=== PATIENT | female | born 1980 | race Caucasian/White ===

== ENCOUNTER 2019-01-12 18:00 | Emergency (ER) | payer OTHER ==
[~2019-01-12] VITALS: Ht 162.6 cm; Wt 61.8 kg
[2019-01-12] MEDS ORDERED: HYDROCODONE/ACETAMINOPHEN 5-325 MG TABLET PO ONE (21:00)
[2019-01-12 22:18] VITALS: BP 120/76
== END 2019-01-12 22:52 | disposition home or self-care (01) ==
LOC: EMS 18:01
DX: S42.302A Unspecified fracture of shaft of humerus, left arm, initial encounter for closed fracture (principal); V19.88XA Pedal cyclist (driver) (passenger) injured in other specified transport accidents, initial encounter; Y93.55 Activity, bike riding; Y92.89 Other specified places as the place of occurrence of the external cause; Y99.8 Other external cause status
CPT/HCPCS: 29105

== ENCOUNTER 2019-08-16 20:49 | Emergency (ER) | payer OTHER ==
[~2019-08-16] VITALS: Ht 162.6 cm; Wt 60.9 kg
[2019-08-16] MEDS ORDERED: FLUO10CA23 PO (21:17)
[2019-08-16 23:17] LABS: APPEARANCE,URINE CLOUDY (CLEAR); GLUCOSE, URINE (UA) NEGATIVE (NEGATIVE); KETONES,URINE 15 mg/dL (NEGATIVE); LEUKOCYTE ESTERASE ,URINE NEGATIVE (NEGATIVE); NITRATE,URINE NEGATIVE (NEGATIVE); OCCULT BLOOD,URINE NEGATIVE (NEGATIVE); PH,URINE 5.5 (5.0-8.0); PROTEIN,URINE TRACE (NEGATIVE)
[2019-08-16 23:25] LABS: BILIRUBIN,URINE PRELIM. POSITIVE (NEGATIVE)
[2019-08-16 23:29] LABS: BACTERIA,URINE Few /HPF (None Seen); RBC,URINE 0-2 /HPF (0-2); SQUAMOUS EPITHELIAL CELL,UR Moderate /LPF (None Seen); WBC,URINE 0-2 /HPF (0-5)
[2019-08-16 23:49] LABS: BASOPHILS % (AUTO) 0.5 % (0.0-2.0); EOSINOPHILS % (AUTO) 1.4 % (1.0-6.0); HEMOGLOBIN 14.4 g/dL (12.0-16.0); LYMPHOCYTES # (AUTO) 0.9 K/uL (1.0-4.8); LYMPHOCYTES % (AUTO) 15.2 % (22.0-44.0); MEAN CORPUSCULAR HEMOGLOBIN 31.5 pg (26.0-34.0); MEAN CORPUSCULAR HGB CONC 34.4 G/dL (31.0-37.0); MEAN CORPUSCULAR VOLUME 92 fL (80-100); MONOCYTES # (AUTO) 0.6 K/uL (0.1-1.0); MONOCYTES % (AUTO) 9.5 % (2.0-9.0); NEUTROPHILS # (AUTO) 4.3 K/uL (1.8-7.7); NEUTROPHILS % (AUTO) 73.4 % (40.0-70.0); PLATELET COUNT (AUTO) 201 K/uL (150-450); RED BLOOD CELL COUNT(AUTO) 4.59 MIL/uL (4.00-5.20); RED CELL DISTRIBUTION WIDTH 14.3 % (11.5-14.5)
[2019-08-17] MEDS ORDERED: SODIUM CHLORIDE 0.9% 1,000 ML IV ONE
[2019-08-17] MEDS ORDERED: ONDANSETRON HCL 4 MG/2 ML VIAL IVP ONE
[2019-08-17] MEDS ORDERED: KETOROLAC TROMETHAMINE 30 MG/ML VIAL IVP ONE
[2019-08-17 00:01] LABS: ANION GAP 12 mmol/L (8-16); CALCIUM, TOTAL 9.5 mg/dL (8.8-10.5); CARBON DIOXIDE 27 mmol/L (22-29); CHLORIDE 102 mmol/L (98-107); CREATININE 0.82 mg/dL (0.60-1.30); GLOMERULAR FILTR. RATE CALC > 60 mL/min (>60); GLUCOSE,RANDOM 92 mg/dL (70-110); POTASSIUM 3.6 mmol/L (3.5-5.1); SODIUM SERUM 141 mmol/L (136-145); UREA NITROGEN, BLOOD 26 mg/dL (7-18)
[2019-08-17 00:16] LABS: AMPHET/METH SCREEN,URINE POSITIVE (NEGATIVE); BARBITURATE SCREEN, URINE NEGATIVE (NEGATIVE); BENZODIAZEPINES SCREEN,URINE NEGATIVE (NEGATIVE); CANNABINOID SCREEN,URINE NEGATIVE (NEGATIVE); COCAINE SCREEN,URINE NEGATIVE (NEGATIVE); METHADONE SCREEN, URINE NEGATIVE (NEGATIVE); OPIATE SCREEN,URINE NEGATIVE (NEGATIVE)
[2019-08-17 00:20] LABS: PHENCYCLIDINE SCREEN,URINE NEGATIVE (NEGATIVE)
[2019-08-17 00:21] LABS: ALANINE AMINOTRANSFERASE 99 U/L (12-78); ALBUMIN 4.3 g/dL (3.4-5.0); ALKALINE PHOSPHATASE 63 U/L (46-116); ASPARTATE AMINOTRANSFERASE 61 U/L (15-37); BILIRUBIN,TOTAL 1.1 mg/dL (0.1-1.0); HCG,QUANTITATIVE < 1 mIU/mL (0-6); LIPASE 135 U/L (73-393)
[2019-08-17 01:21] VITALS: BP 120/73
== END 2019-08-17 01:58 | disposition home or self-care (01) ==
LOC: EMS 20:50
DX: R10.31 Right lower quadrant pain (principal); R10.32 Left lower quadrant pain; R11.0 Nausea; F15.10 Other stimulant abuse, uncomplicated; F12.90 Cannabis use, unspecified, uncomplicated; F17.210 Nicotine dependence, cigarettes, uncomplicated
CPT/HCPCS: 36415; 80053; 80307; 81001; 83690; 84702; 85025; 96374; 96375; 99283; J1885; J2405; J7030

== ENCOUNTER 2021-02-07 00:09 | Inpatient (IN) | payer MEDICAID, OTHER ==
[~2021-02-07] VITALS: Ht 162.6 cm; Wt 63.6 kg
[~2021-02-07 00:09] MED LIST: FLUO10CA23 PO
[2021-02-07] MEDS ORDERED: DiphenhydrAMINE HCL 50 MG/ML VIAL IM ONE (00:45)
[2021-02-07] MEDS ORDERED: LORazepam 2 MG/ML VIAL IM ONE (00:45)
[2021-02-07] MEDS ORDERED: HALOPERIDOL LACTATE 5 MG/ML VIAL IM ONE (00:45)
[2021-02-07] MEDS ORDERED: ZOLPIDEM TARTRATE 10 MG TABLET PO PRN (01:30)
[2021-02-07 01:39] LABS: COVID AG,FIA SOURCE NASOPHARYNGEAL
[2021-02-07 01:44] LABS: BASOPHILS % (AUTO) 0.6 % (0.0-2.0); EOSINOPHILS % (AUTO) 3.3 % (1.0-6.0); HEMOGLOBIN 13.1 g/dL (12.0-16.0); LYMPHOCYTES # (AUTO) 1.3 K/uL (1.0-4.8); LYMPHOCYTES % (AUTO) 28.2 % (22.0-44.0); MEAN CORPUSCULAR HGB CONC 33.6 G/dL (31.0-37.0); MEAN CORPUSCULAR VOLUME 92 fL (80-100); MONOCYTES # (AUTO) 0.6 K/uL (0.1-1.0); MONOCYTES % (AUTO) 12.5 % (2.0-9.0); NEUTROPHILS # (AUTO) 2.5 K/uL (1.8-7.7); NEUTROPHILS % (AUTO) 55.4 % (40.0-70.0); PLATELET COUNT (AUTO) 173 K/uL (150-450); RED BLOOD CELL COUNT(AUTO) 4.23 MIL/uL (4.00-5.20); RED CELL DISTRIBUTION WIDTH 13.5 % (11.5-14.5)
[2021-02-07 01:55] LABS: ANION GAP 7 mmol/L (8-16); CALCIUM, TOTAL 9.2 mg/dL (8.8-10.5); CARBON DIOXIDE 29 mmol/L (22-29); CHLORIDE 106 mmol/L (98-107); CREATININE 0.82 mg/dL (0.60-1.30); GLOMERULAR FILTR. RATE CALC > 60 mL/min (>60); GLUCOSE,RANDOM 109 mg/dL (70-110); SODIUM SERUM 142 mmol/L (136-145); UREA NITROGEN, BLOOD 18 mg/dL (7-18)
[2021-02-07 02:09] LABS: ALANINE AMINOTRANSFERASE 44 U/L (12-78); ALBUMIN 3.7 g/dL (3.4-5.0); ALKALINE PHOSPHATASE 57 U/L (46-116); ASPARTATE AMINOTRANSFERASE 25 U/L (15-37); BILIRUBIN,TOTAL 0.3 mg/dL (0.1-1.0); HCG,QUANTITATIVE < 1 mIU/mL (0-6); TOTAL PROTEIN, SERUM 7.2 g/dL (6.4-8.2)
[2021-02-07 03:36] VITALS: BP 110/60
[2021-02-07] MEDS ORDERED: INFLUENZA VIRUS VACCINE QVS 2020-21 (6MO+)/PF 60 MCG/0.5 ML SYRINGE IM ONE (04:00)
[2021-02-07 08:16] VITALS: BP 100/62
[2021-02-07] MEDS ORDERED: PROMETHAZINE HCL 25 MG TABLET PO PRN (10:15)
[2021-02-07] MEDS ORDERED: TUBERCULIN, PURIFIED PROTEIN DERIVATIVE 5 TU/0.1 ML SYRINGE ID ONE (10:15)
[2021-02-07] MEDS ORDERED: HydrOXYzine PAMOATE 50 MG CAPSULE PO PRN (10:15)
[2021-02-07] MEDS ORDERED: GuaiFENesin/D-METHORPHAN [SUGAR-FREE] 200-20MG/10 ML SYRUP UDCUP PO PRN (10:15)
[2021-02-07 16:18] VITALS: BP 100/67
[2021-02-07] MEDS: THIAMINE 100 MG TABLET PO SCH (16:22)
[2021-02-07] MEDS: LORazepam 2 MG TABLET PO PRN (16:32)
[2021-02-07] MEDS: MELATONIN 5 MG TABLET PO SCH (20:37)
[2021-02-07] MEDS ORDERED: OLANZapine 5 MG RAPDIS TABLET PO SCH (21:00)
[2021-02-08 00:41] VITALS: BP 102/72
[2021-02-08] MEDS: NALTREXONE HCL 50 MG TABLET PO SCH (08:16)
[2021-02-08] MEDS: THIAMINE 100 MG TABLET PO SCH ×2 (08:16→16:11)
[2021-02-08] MEDS: FOLIC ACID 1 MG TABLET PO SCH (08:16)
[2021-02-08] MEDS: MULTIVITAMINS WITH MINERALS, THERAPEUTIC TABLET PO SCH (08:16)
[2021-02-08] MEDS: OMEGA-3/DHA/EPA/FISH OIL 1,000 MG CAPSULE PO SCH (08:16)
[2021-02-08] MEDS: LORazepam 2 MG TABLET PO PRN ×2 (08:19→16:17)
[2021-02-08] MEDS ORDERED: MAG HYDROX/AL HYDROX/SIMETH ES 30 ML SUSPENSION UDCUP PO PRN (16:15)
[2021-02-08] MEDS ORDERED: PROMETHAZINE HCL 25 MG TABLET PO PRN (16:15)
[2021-02-08] MEDS ORDERED: MAGNESIUM HYDROXIDE SUSPENSION 30 ML UDCUP PO PRN (16:15)
[2021-02-08] MEDS ORDERED: LOPERAMIDE HCL 2 MG CAPSULE PO PRN (16:15)
[2021-02-08] MEDS ORDERED: TUBERCULIN, PURIFIED PROTEIN DERIVATIVE 5 TU/0.1 ML SYRINGE ID ONE (16:15)
[2021-02-08] MEDS: MELATONIN 5 MG TABLET PO SCH (19:54)
[2021-02-08] MEDS: OLANZapine 10 MG RAPDIS TABLET PO SCH (19:57)
[2021-02-09 00:25] VITALS: BP 110/77
[2021-02-09 08:05] VITALS: BP 134/70
[2021-02-09] MEDS: FOLIC ACID 1 MG TABLET PO SCH (08:18)
[2021-02-09] MEDS: MULTIVITAMINS WITH MINERALS, THERAPEUTIC TABLET PO SCH (08:18)
[2021-02-09] MEDS: THIAMINE 100 MG TABLET PO SCH ×2 (08:18→16:13)
[2021-02-09] MEDS: LORazepam 2 MG TABLET PO PRN (08:18)
[2021-02-09] MEDS: OMEGA-3/DHA/EPA/FISH OIL 1,000 MG CAPSULE PO SCH (08:18)
[2021-02-09] MEDS: NALTREXONE HCL 50 MG TABLET PO SCH (08:18)
[2021-02-09] MEDS: MELATONIN 5 MG TABLET PO SCH (20:08)
[2021-02-09] MEDS: OLANZapine 10 MG RAPDIS TABLET PO SCH (20:08)
[2021-02-09] MEDS: DIVALPROEX SODIUM 500 MG ER TABLET PO SCH (20:09)
[2021-02-09] MEDS: ACETAMINOPHEN 325 MG TABLET PO PRN (20:09)
[2021-02-10 06:20] VITALS: BP 112/62
[2021-02-10 07:29] LABS: HEMOGLOBIN A1C 5.5 % (3.8-5.6)
[2021-02-10 07:51] LABS: CHOL/HDL RATIO 2.9 (3.9-5.7); FREE T4 (FREE THYROXINE) 1.19 ng/dL (0.76-1.46); THYROID STIMULATING HORMONE 0.28 uIU/mL (0.36-3.74)
[2021-02-10 08:09] VITALS: BP 121/74
[2021-02-10] MEDS: NALTREXONE HCL 50 MG TABLET PO SCH (09:00)
[2021-02-10] MEDS: OMEGA-3/DHA/EPA/FISH OIL 1,000 MG CAPSULE PO SCH (09:00)
[2021-02-10] MEDS: THIAMINE 100 MG TABLET PO SCH ×2 (09:00→16:32)
[2021-02-10] MEDS: FOLIC ACID 1 MG TABLET PO SCH (09:00)
[2021-02-10] MEDS: MULTIVITAMINS WITH MINERALS, THERAPEUTIC TABLET PO SCH (09:00)
[2021-02-10 16:06] VITALS: BP 104/70
[2021-02-10] MEDS: DIVALPROEX SODIUM 500 MG ER TABLET PO SCH (20:56)
[2021-02-10] MEDS: MELATONIN 5 MG TABLET PO SCH (20:56)
[2021-02-10] MEDS: OLANZapine 10 MG RAPDIS TABLET PO SCH (20:56)
[2021-02-11 00:14] VITALS: BP 100/76
[2021-02-11 08:10] VITALS: BP 119/53
[2021-02-11] MEDS: MULTIVITAMINS WITH MINERALS, THERAPEUTIC TABLET PO SCH (08:12)
[2021-02-11] MEDS: OMEGA-3/DHA/EPA/FISH OIL 1,000 MG CAPSULE PO SCH (08:12)
[2021-02-11] MEDS: THIAMINE 100 MG TABLET PO SCH ×2 (08:12→17:00)
[2021-02-11] MEDS: FOLIC ACID 1 MG TABLET PO SCH (08:12)
[2021-02-11] MEDS: NALTREXONE HCL 50 MG TABLET PO SCH (08:12)
[2021-02-11] MEDS ORDERED: LORazepam 2 MG/ML VIAL ONE (11:26)
[2021-02-11] MEDS ORDERED: DiphenhydrAMINE HCL 50 MG/ML VIAL ONE (11:26)
[2021-02-11] MEDS ORDERED: HALOPERIDOL LACTATE 5 MG/ML VIAL ONE (11:26)
[2021-02-11] MEDS ORDERED: HALOPERIDOL LACTATE 5 MG/ML VIAL IM ONE (11:30)
[2021-02-11] MEDS ORDERED: DiphenhydrAMINE HCL 50 MG/ML VIAL IM ONE (11:30)
[2021-02-11] MEDS ORDERED: LORazepam 2 MG/ML VIAL IM ONE (11:30)
[2021-02-11 12:42] VITALS: BP 121/62
[2021-02-11 16:09] VITALS: BP 105/66
[2021-02-11] MEDS: MELATONIN 5 MG TABLET PO SCH (20:26)
[2021-02-11] MEDS: DIVALPROEX SODIUM 500 MG ER TABLET PO SCH (20:26)
[2021-02-11] MEDS: OLANZapine 10 MG RAPDIS TABLET PO SCH (20:27)
[2021-02-12 00:33] VITALS: BP 114/69
[2021-02-12] MEDS: MULTIVITAMINS WITH MINERALS, THERAPEUTIC TABLET PO SCH (08:56)
[2021-02-12] MEDS: FOLIC ACID 1 MG TABLET PO SCH (08:56)
[2021-02-12] MEDS: NALTREXONE HCL 50 MG TABLET PO SCH (08:56)
[2021-02-12] MEDS: THIAMINE 100 MG TABLET PO SCH ×2 (08:56→16:08)
[2021-02-12] MEDS: OMEGA-3/DHA/EPA/FISH OIL 1,000 MG CAPSULE PO SCH (08:56)
[2021-02-12] MEDS: ACETAMINOPHEN 325 MG TABLET PO PRN (16:09)
[2021-02-12] MEDS: DIVALPROEX SODIUM 500 MG ER TABLET PO SCH (20:07)
[2021-02-12] MEDS: OLANZapine 10 MG RAPDIS TABLET PO SCH (20:08)
[2021-02-12] MEDS: MELATONIN 5 MG TABLET PO SCH (20:08)
[2021-02-13 00:09] VITALS: BP 120/76
[2021-02-13 08:18] VITALS: BP 101/60
[2021-02-13] MEDS: MULTIVITAMINS WITH MINERALS, THERAPEUTIC TABLET PO SCH (08:46)
[2021-02-13] MEDS: THIAMINE 100 MG TABLET PO SCH ×2 (08:46→17:00)
[2021-02-13] MEDS: OMEGA-3/DHA/EPA/FISH OIL 1,000 MG CAPSULE PO SCH (08:46)
[2021-02-13] MEDS: FOLIC ACID 1 MG TABLET PO SCH (08:46)
[2021-02-13] MEDS: NALTREXONE HCL 50 MG TABLET PO SCH (08:46)
[2021-02-13 16:16] VITALS: BP 102/64
[2021-02-13] MEDS: DIVALPROEX SODIUM 500 MG ER TABLET PO SCH (21:00)
[2021-02-13] MEDS: OLANZapine 10 MG RAPDIS TABLET PO SCH (21:00)
[2021-02-13] MEDS: MELATONIN 5 MG TABLET PO SCH (21:00)
[2021-02-14 01:42] VITALS: BP 106/68
[2021-02-14 08:20] VITALS: BP 106/57
[2021-02-14] MEDS ORDERED: LORazepam 2 MG/ML VIAL ONE (08:21)
[2021-02-14] MEDS ORDERED: HALOPERIDOL LACTATE 5 MG/ML VIAL ONE (08:22)
[2021-02-14] MEDS ORDERED: DiphenhydrAMINE HCL 50 MG/ML VIAL ONE (08:22)
[2021-02-14] MEDS ORDERED: LORazepam 2 MG/ML VIAL IM ONE (08:30)
[2021-02-14] MEDS ORDERED: HALOPERIDOL LACTATE 5 MG/ML VIAL IM ONE (08:30)
[2021-02-14] MEDS ORDERED: DiphenhydrAMINE HCL 50 MG/ML VIAL IM ONE (08:30)
[2021-02-14] MEDS: THIAMINE 100 MG TABLET PO SCH ×2 (08:55→16:44)
[2021-02-14] MEDS: FOLIC ACID 1 MG TABLET PO SCH (08:55)
[2021-02-14] MEDS: MULTIVITAMINS WITH MINERALS, THERAPEUTIC TABLET PO SCH (08:56)
[2021-02-14] MEDS: OMEGA-3/DHA/EPA/FISH OIL 1,000 MG CAPSULE PO SCH (08:56)
[2021-02-14] MEDS: NALTREXONE HCL 50 MG TABLET PO SCH (08:56)
[2021-02-14 16:14] VITALS: BP 100/60
[2021-02-14] MEDS: LORazepam 2 MG TABLET PO PRN (18:54)
[2021-02-14] MEDS: DIVALPROEX SODIUM 500 MG ER TABLET PO SCH (20:07)
[2021-02-14] MEDS: MELATONIN 5 MG TABLET PO SCH (20:07)
[2021-02-14] MEDS: OLANZapine 10 MG RAPDIS TABLET PO SCH (20:08)
[2021-02-15 01:27] VITALS: BP 104/66
[2021-02-15 07:57] LABS: FREE T4 (FREE THYROXINE) 0.76 ng/dL (0.76-1.46); THYROID STIMULATING HORMONE 0.66 uIU/mL (0.36-3.74)
[2021-02-15 08:16] VITALS: BP 109/81
[2021-02-15] MEDS: OMEGA-3/DHA/EPA/FISH OIL 1,000 MG CAPSULE PO SCH (08:53)
[2021-02-15] MEDS: THIAMINE 100 MG TABLET PO SCH ×2 (08:53→16:09)
[2021-02-15] MEDS: FOLIC ACID 1 MG TABLET PO SCH (08:53)
[2021-02-15] MEDS: MULTIVITAMINS WITH MINERALS, THERAPEUTIC TABLET PO SCH (08:53)
[2021-02-15] MEDS: NALTREXONE HCL 50 MG TABLET PO SCH (08:53)
[2021-02-15] MEDS: LORazepam 2 MG TABLET PO PRN (13:35)
[2021-02-15 16:23] VITALS: BP 137/80
[2021-02-15] MEDS: DIVALPROEX SODIUM 500 MG ER TABLET PO SCH (20:14)
[2021-02-15] MEDS: MELATONIN 5 MG TABLET PO SCH (20:14)
[2021-02-15] MEDS: OLANZapine 10 MG RAPDIS TABLET PO SCH (20:15)
[2021-02-16 00:03] VITALS: BP 112/67
[2021-02-16 08:12] VITALS: BP 118/72
[2021-02-16] MEDS: THIAMINE 100 MG TABLET PO SCH ×2 (08:33→16:20)
[2021-02-16] MEDS: OMEGA-3/DHA/EPA/FISH OIL 1,000 MG CAPSULE PO SCH (08:33)
[2021-02-16] MEDS: FOLIC ACID 1 MG TABLET PO SCH (08:33)
[2021-02-16] MEDS: NALTREXONE HCL 50 MG TABLET PO SCH (08:33)
[2021-02-16] MEDS: MULTIVITAMINS WITH MINERALS, THERAPEUTIC TABLET PO SCH (08:34)
[2021-02-16] MEDS: LORazepam 2 MG TABLET PO PRN ×2 (08:38→16:20)
[2021-02-16] MEDS: OLANZapine 5 MG RAPDIS TABLET PO PRN (10:27)
[2021-02-16 16:00] VITALS: BP 114/70
[2021-02-16] MEDS: OLANZapine 10 MG RAPDIS TABLET PO SCH ×2 (21:00→21:25)
[2021-02-16] MEDS: MELATONIN 5 MG TABLET PO SCH ×2 (21:00→21:25)
[2021-02-16] MEDS: DIVALPROEX SODIUM 500 MG ER TABLET PO SCH ×2 (21:00→21:25)
[2021-02-17 00:14] VITALS: BP 110/69
[2021-02-17 08:19] VITALS: BP 121/84
[2021-02-17] MEDS: MULTIVITAMINS WITH MINERALS, THERAPEUTIC TABLET PO SCH (08:48)
[2021-02-17] MEDS: OMEGA-3/DHA/EPA/FISH OIL 1,000 MG CAPSULE PO SCH (08:48)
[2021-02-17] MEDS: FOLIC ACID 1 MG TABLET PO SCH (08:48)
[2021-02-17] MEDS: NALTREXONE HCL 50 MG TABLET PO SCH (08:48)
[2021-02-17] MEDS: THIAMINE 100 MG TABLET PO SCH (08:48)
[2021-02-17] MEDS: LORazepam 2 MG TABLET PO PRN ×2 (08:51→18:19)
[2021-02-17] MEDS: ACETAMINOPHEN 325 MG TABLET PO PRN (08:56)
[2021-02-17] MEDS: OLANZapine 5 MG RAPDIS TABLET PO PRN (09:25)
[2021-02-17] MEDS ORDERED: PALIPERIDONE PALMITATE 234 MG/1.5 ML SYRINGE IM ONE (14:45)
[2021-02-17] MEDS ORDERED: OLAN10TA22 PO (14:49)
[2021-02-17] MEDS ORDERED: OMEG-135 PO (14:49)
[2021-02-17] MEDS ORDERED: NALT50TA PO (14:49)
[2021-02-17] MEDS ORDERED: MELA5TAB3 PO (14:49)
[2021-02-17 16:18] VITALS: BP 118/84
[2021-02-17] MEDS: MELATONIN 5 MG TABLET PO SCH (20:44)
[2021-02-17] MEDS: OLANZapine 10 MG RAPDIS TABLET PO SCH (20:44)
[2021-02-18 01:44] VITALS: BP 110/74
[2021-02-18 08:07] VITALS: BP_SYST 104; BP_SYST 111; BP_DIAS 76; BP_DIAS 77
[2021-02-18] MEDS: MULTIVITAMINS WITH MINERALS, THERAPEUTIC TABLET PO SCH (08:43)
[2021-02-18] MEDS: OMEGA-3/DHA/EPA/FISH OIL 1,000 MG CAPSULE PO SCH (08:43)
[2021-02-18] MEDS: NALTREXONE HCL 50 MG TABLET PO SCH (08:43)
[2021-02-18] MEDS: LORazepam 2 MG TABLET PO PRN ×2 (08:44→16:44)
[2021-02-18] MEDS: OLANZapine 5 MG RAPDIS TABLET PO PRN (08:44)
[2021-02-18] MEDS ORDERED: PALIPERIDONE PALMITATE 234 MG/1.5 ML SYRINGE IM ONE (09:00)
[2021-02-18 16:04] VITALS: BP 102/67
[2021-02-18] MEDS: OLANZapine 10 MG RAPDIS TABLET PO SCH (20:39)
[2021-02-18] MEDS: MELATONIN 5 MG TABLET PO SCH (20:39)
[2021-02-19 02:14] VITALS: BP 110/64
[2021-02-19 07:55] LABS: COVID AG,FIA SOURCE NASAL SWAB
[2021-02-19 08:07] VITALS: BP 101/63
[2021-02-19] MEDS: MULTIVITAMINS WITH MINERALS, THERAPEUTIC TABLET PO SCH (08:20)
[2021-02-19] MEDS: NALTREXONE HCL 50 MG TABLET PO SCH (08:20)
[2021-02-19] MEDS: OMEGA-3/DHA/EPA/FISH OIL 1,000 MG CAPSULE PO SCH (08:20)
[2021-02-19 17:08] VITALS: BP 117/70
[2021-02-19] MEDS: LORazepam 2 MG TABLET PO PRN (17:45)
[2021-02-19] MEDS: ACETAMINOPHEN 325 MG TABLET PO PRN (17:46)
[2021-02-19] MEDS: OLANZapine 10 MG RAPDIS TABLET PO SCH (20:29)
[2021-02-19] MEDS: MELATONIN 5 MG TABLET PO SCH (20:29)
[2021-02-20 01:00] VITALS: BP 112/68
[2021-02-20] MEDS: LORazepam 2 MG TABLET PO PRN (08:02)
[2021-02-20] MEDS: MULTIVITAMINS WITH MINERALS, THERAPEUTIC TABLET PO SCH (08:02)
[2021-02-20] MEDS: NALTREXONE HCL 50 MG TABLET PO SCH (08:02)
[2021-02-20] MEDS: OMEGA-3/DHA/EPA/FISH OIL 1,000 MG CAPSULE PO SCH (08:02)
[2021-02-21] MEDS ORDERED: PALIPERIDONE PALMITATE 156 MG/ML SYRINGE IM ONE (09:00)
[2021-02-22] MEDS ORDERED: PALIPERIDONE PALMITATE 156 MG/ML SYRINGE IM ONE (09:00)
== END 2021-02-20 13:30 | disposition home or self-care (01) | DRG 750 ==
LOC: EMS 00:11 → B3A 02:00
PROVIDERS: ADMIT Psychiatry & Neurology Psychiatry; ATTEND Psychiatry & Neurology Psychiatry
DX: F25.1 Schizoaffective disorder, depressive type (principal); F12.90 Cannabis use, unspecified, uncomplicated; F15.90 Other stimulant use, unspecified, uncomplicated; F17.210 Nicotine dependence, cigarettes, uncomplicated; Z20.822 Contact with and (suspected) exposure to COVID-19; Z55.9 Problems related to education and literacy, unspecified; Z59.9 Problem related to housing and economic circumstances, unspecified; Z65.3 Problems related to other legal circumstances; Z91.14 Patient's other noncompliance with medication regimen; Z28.21 Immunization not carried out because of patient refusal; Z79.899 Other long term (current) drug therapy
CPT/HCPCS: 83036; 84439; 84443; 86592; 87426; 99291; A9575; G0480; J1200; J1630; J2060